=== PATIENT | female | born 1980 | race African-American/Black ===

== ENCOUNTER 2019-09-23 14:03 | Emergency (ER) | payer OTHER ==
[~2019-09-23] VITALS: Ht 162.6 cm; Wt 59.1 kg
[2019-09-23 14:10] VITALS: Ht 162.6 cm; Wt 59.1 kg
[2019-09-23] MEDS ORDERED: NORVASC5 MG PO (14:11)
[2019-09-23 14:49] LABS: BASOPHILS 0.1 % (0-2); EOSINOPHILS 0.1 % (0-7); HEMATOCRIT 33.4 % (36.0-48.0); HEMOGLOBIN 9.7 g/dL (12-16); IMMATURE GRANULOCYTES 0.3 % (0-5); LYMPHOCYTES 11.7 % (15-50); MCH 20.2 pg (26.0-34.0); MCV 69.6 fL (80.0-100.0); MEAN PLATELET VOLUME 9.3 fL (7.4-10.4); MONOCYTES 5.6 % (2-11); NEUTROPHILS 82.2 % (40-80); RDW 24.3 % (11.5-14.5); WBC 15.1 10x3/uL (4.8-10.8)
[2019-09-23 14:57] LABS: PLATELET COUNT 447 10x3/uL (130-400)
[2019-09-23 15:08] LABS: BILIRUBIN NEGATIVE (NEGATIVE); GLUCOSE NEGATIVE (NEGATIVE); KETONE NEGATIVE (NEGATIVE); NITRITE NEGATIVE (NEGATIVE); SPECIFIC GRAVITY 1.015 (1.005-1.020); UROBILINOGEN NORMAL (NORMAL)
[2019-09-23 15:09] LABS: EPITHELIAL CELLS 0-5 /hpf (0-5); WHITE CELLS - URINE 0-5 /hpf (NEGATIVE)
[2019-09-23 15:09] LABS: INR 1.08 (0.85-1.17); PROTIME 13.9 SECONDS (11.6-15.0)
[2019-09-23 15:10] LABS: APTT 35.1 SECONDS (22.8-39.4)
[2019-09-23 15:10] LABS: BACTERIA FEW /hpf (NEGATIVE)
[2019-09-23 15:13] LABS: CALC OSMOLALITY 263 mosm/kg (275-300); CARBON DIOXIDE 22.2 mmol/L (21.0-32.0); CHLORIDE - SERUM 101 mmol/L (98-107); CREATININE - SERUM 0.8 mg/dL (0.6-1.3); GLUCOSE 107 mg/dL (74-106); POTASSIUM - SERUM 3.8 mmol/L (3.5-5.1); SODIUM 133 mmol/L (136-145); UREA NITROGEN 8 mg/dL (7-18); eGFR NON AFRICAN AMERICAN 84 mL/min (90-120)
[2019-09-23 15:28] LABS: ALKALINE PHOSPHATASE 82 U/L (30-120); ALT (SGPT) 16 U/L (10-68); AMYLASE - SERUM 56 U/L (25-115); BILIRUBIN - TOTAL 0.78 mg/dL (0.2-1.3); CKMB 1.2 U/L (0.0-3.6); CREATINE KINASE 138 UL (21-215); MAGNESIUM - SERUM 1.9 mg/dL (1.8-2.4)
[2019-09-23 15:31] LABS: LIPASE 27 U/L (73-393); TROPONIN-I < 0.017 ng/mL (0.000-0.060)
[2019-09-23 18:54] VITALS: BP 173/88
== END 2019-09-23 18:58 | disposition home or self-care (01) ==
LOC: D.ER 14:03
PROVIDERS: Family Medicine
DX: N83.201 Unspecified ovarian cyst, right side (principal); I10 Essential (primary) hypertension; Z72.0 Tobacco use; R10.9 Unspecified abdominal pain; Z91.14 Patient's other noncompliance with medication regimen; D25.9 Leiomyoma of uterus, unspecified

== ENCOUNTER 2019-10-25 05:05 | Day surgery (SDC) | payer OTHER ==
[2019-10-22 12:23] LABS: BASOPHILS 0.2 % (0-2); EOSINOPHILS 2.5 % (0-7); HEMATOCRIT 29.9 % (36.0-48.0); HEMOGLOBIN 8.3 g/dL (12-16); IMMATURE GRANULOCYTES 0.1 % (0-5); LYMPHOCYTES 27.4 % (15-50); MCHC 27.8 g/dL (31.0-37.0); MCV 66.9 fL (80.0-100.0); MEAN PLATELET VOLUME 8.6 fL (7.4-10.4); NEUTROPHILS 62.8 % (40-80); PLATELET COUNT 361 10x3/uL (130-400); RBC 4.47 10x6/uL (4.00-5.40); RDW 23.9 % (11.5-14.5); WBC 8.1 10x3/uL (4.8-10.8)
[2019-10-22 12:27] LABS: UDS - AMPHET NEGATIVE QUAL (NEGATIVE); UDS - BARB NEGATIVE QUAL (NEGATIVE); UDS - BENZO NEGATIVE QUAL (NEGATIVE); UDS - COCAINE NEGATIVE QUAL (NEGATIVE); UDS - OPIATE NEGATIVE QUAL (NEGATIVE); UDS - PCP NEGATIVE QUAL (NEGATIVE); UDS - THC POSITIVE QUAL (NEGATIVE)
[2019-10-22 12:30] LABS: CALC OSMOLALITY 274 mosm/kg (275-300); CALCIUM 9.1 mg/dL (8.5-10.1); CARBON DIOXIDE 25.7 mmol/L (21.0-32.0); CHLORIDE - SERUM 104 mmol/L (98-107); CREATININE - SERUM 0.8 mg/dL (0.6-1.3); GLUCOSE 91 mg/dL (74-106); SODIUM 137 mmol/L (136-145); UREA NITROGEN 14 mg/dL (7-18); eGFR NON AFRICAN AMERICAN 84 mL/min (90-120)
[2019-10-22 12:32] LABS: MCH 18.6 pg (26.0-34.0)
[~2019-10-25] VITALS: Ht 162.6 cm; Wt 66.4 kg
[2019-10-25] VITALS (18 sets, daily range): BP systolic 138–181; BP diastolic 74–95; Ht 162.6 cm; Wt 66.4 kg
[~2019-10-25 05:05] MED LIST: EZFE 200200 MG PO; NORVASC5 MG PO; TORADOL10 MG PO; TYLENOL #4 W/CO1 TAB PO
[2019-10-25] MEDS ORDERED: EZFE 200200 MG PO (05:45)
[2019-10-25 05:56] LABS: HCG URINE NEGATIVE (NEGATIVE)
--- NOTE | 2019-10-25 06:20 | NUR ---
0085-PHONED HEMOGLOBIN AND HEMATOCRIT RESULTS TO DR. REECE-ORDER RECEIVED FOR CROSSMATCH 2 UNTIS OF PRBC'S.
--- NOTE | 2019-10-25 08:18 | NUR ---
0752 LAPROSCOPIC CHANGED TO OPEN PROCEDURE
--- NOTE | 2019-10-25 10:46 | NUR ---
REC'D TO ROOM 1278 FROM PACU ACCOMPANIED BY TRANSPORTER. PT GROGGY BUT AROUSES TO VOICE. ORIENTED X3. B/P ELEVATED AT THIS TIME AT 167/88. PT C/O PAIN 5-6/10 ABD AND INCISIONAL. REPORTS TO RN THAT B/P ELEVATES WITH PAIN TYPICALLY. BREATH SOUNDS CLEAR AND EQUAL BILATERALLY. BOWEL SOUNDS PRESENT AND HYPOACTIVE X4 QUADRANTS. NERI DRAINING FORMULA TINGED URINE, 25 MLS PRESENT IN UROMETER, PER REPORT REC'D FROM CHUTE MAN HE HAD EMPTIED 140 MLS OUT JUST PRIOR TO CALLING REPORT. BULKY DRSG NOTED TO LOWER TRANSVERSE ABD INCISION, CLEAN, DRY AND INTACT, NO DRAINAGE NOTED TO DRSG. SCD'S PLACE DON BLE. INCENTIVE SPIROMETER PROVIDED AND USED BY PT WITH GOOD EFFORT, COUGH AND DEEP BREATHING ALSO DONE WITH GOOD EFFORT. PERICARE DONE, NO VAG BLEEDING NOTED. PERIPAD PLACED. WILL MEDICATE FOR PAIN. POC DISCUSSED WITH PT, VERBALIZES UNDERSTANDING. IV PLACED TO PUMP.
--- NOTE | 2019-10-25 11:04 | NUR ---
PT'S MOTHER TO BEDSIDE.
--- NOTE | 2019-10-25 12:07 | NUR ---
I&O DONE, 150 MLS FORMULA TINGED URINE EMPTIED FROM UROMETER. INCENTIVE SPIROMETER DONE WITH GOOD EFFORT. REPOSITIONED INDEPENDENTLY. DENIES NAUSEA. ICE WATER PROVIDED AND ENCOURAGED TO TAKE SMALL SLOW SIPS, VERBALIZES UNDERSTANDING. PAIN CURRENTLY 3-4/10, DENIES NEED FOR INTERVENTION.
--- NOTE | 2019-10-25 14:03 | NUR ---
VSS. C/O FEELING HOT. NO TEMP AT THIS TIME. ROOM TEMP DECREASED, BLANKETS REMOVED AND SHEET PROVIDED. ICE PACK REPLACED. SCD'S REMAIN ON BLE. INCENTIVE SPIROMETER DONE WITH GOOD EFFORT X10. REPOSITIONED BACK TO BACK FROM L SIDE. PERICARE AND NERI CARE DONE. BED IN LOW POSITION WITH SRUP X2. CALL LIGHT AND PHONE WITHIN REACH. PT'S MOTHER AT BEDSIDE, SUPPORTIVE AND ATTENTIVE TO PT NEEDS. WILL CONTINUE TO MONITOR.
--- NOTE | 2019-10-25 16:02 | NUR ---
PT CALLS OUT BOX LINER LIGHT REQUESTING PAIN MEDICATION AND BLANKET. THIS RN TO ROOM WITH WARM BLANKET. DILAUID 2MG ADMIN IVP FOR PAIN RATED 6/10 AT INCISION, PT REQUESTS 2MG DOSE FOR PAIN WORSENING WITH COUGH AND MOVEMENT. WILL ADMIN SCHEDULED 1600 MEDS WELL.
--- NOTE | 2019-10-25 16:12 | NUR ---
SCHED TORADOL ADMIN, SEE EMAR. PT NAUSEATED. 4MG ZOFRAN ADMIN ORDERED, PRN, SEE EMAR. EMESIS BAG GIVEN. WILL HOLD SCHEDULED PO MEDS UNTIL NAUSEA RESOLVED.
--- NOTE | 2019-10-25 16:40 | NUR ---
PT DENIES NAUSEA, STATES READY FOR PO MEDS. CLONIDINE AND REGLAN ADMIN PO ORDERED, WELL SCHED ZOSYN. SEE EMAR FOR DOC. SURGICAL PILLOW PROVIDED TO PT FOR BRACING ABD FOR COUGH. 130ML CLEAR YELLOW URINE EMPTIED FROM UROMETER. PT DENIES FURTHER NEEDS, RATES PAIN 2/10. PT SITTING UP IN BED WATCHING TV AND TALKING WITH MOTHER, DROWSY WHEN NOT TALKING. SRUx2, CL IN REACH. WILL CONT TO MONITOR.
--- NOTE | 2019-10-25 17:03 | NUR ---
BP DECREASE NOTED AFTER 1635 CLONIDINE PO, BUT STILL ELEVATED AT 164/86. WILL REAVALATE IN 30MIN TO ALLOW FULL EFFECT FROM CLONIDINE.
--- NOTE | 2019-10-25 17:35 | NUR ---
PT CALLS OUT DIRECTOR [employer] LIGHT STATING SHE IS NAUSEATED. THIS RN TO ROOM. PT NOTED TO HAVE VOMITED APPROX 50ML CLEAR LIQUIDS AFTER EATING CLEAR LIQUID DINNER TRAY. PT PROVIDED WITH COOL CLOTH AND NEW EMESIS BAG. PT DENIES WANTING THIS RN TO CALL FOR DIFFERENT NAUSEA MED AT THIS TIME, STATES SHE FEELS BETTER AFTER VOMITING. PT ENCOURAGED TO TAKE IT EASY ON CLEAR LIQUIDS AND ONLY SIP SLOWLY WHEN SHE FEELS UP TO IT. UNDERSTANDING VERBALIZED. SRUx2, CL IN REACH.
--- NOTE | 2019-10-25 18:44 | NUR ---
I&O DONE, 125 MLS CLEAR LIGHT YELLOW EMPTIED FROM NERI. DENIES NAUSEA AT THIS TIME. GABAPENTIN PROVIDED. UP TO SIT ON EDGE OF BED, SCD'S OFF PER PT REQUEST. INCENTIVE SPIROMETER DONE WITH GOOD EFFORT. ASSISTED BACK TO BED. ICE WATER AND ICE PACK APPLIED. BED IN LOW POSITION WITH SRUP X2. CALL LIGHT AND PHONE WITHIN REACH. WILL CONTINUE TO MONITOR.
--- NOTE | 2019-10-25 19:28 | NUR ---
PT REC'D IN BED AT THIS TIME. IV SITE TO THE LEFT HAND CLEAR AND PATENT. DRESSING TO THE ADBOMEN CDI. NERI CATH PATENT WITH SMALL AMOUNT OF YELLOW URINE NOTED. SCDS IN PLACE AND FUNCTIONAL. NO DISTRESS NOTED AT THIS TIME. SIDERAILS UP FOR SAFETY. CALL LIGHT IN PT REACH. Kari JOHNSTON RN
--- NOTE | 2019-10-25 20:23 | NUR ---
DR REECE CALLED AT THIS TIME. INFORMED OF ELEVATED BP. ORDER REC'D TO INCREASE CLONIDINE TO 0.1MG TID IF NEEDED AND AMBIEN 10 MG PO Q HS NEEDED. Kari JOHNSTON RN
--- NOTE | 2019-10-25 21:35 | NUR ---
PT MEDICATED WITH SCHEDULED REGLAN, TORADOL FOR PAIN LEVEL OF 5/10, AND SCHEDULED ZOSYN UP AT THIS TIME. NO DISTRESS NOTED. Kari JOHNSTON RN
--- NOTE | 2019-10-25 22:35 | NUR ---
pt rec'd in bed at this time. intermittently sleeping. states that pain is a 1/10 at this time. will continue to monitor. rashel marcano rn
[2019-10-26 00:27] VITALS: BP 162/82
--- NOTE | 2019-10-26 00:27 | NUR ---
pt rec'd in bed at this time. pt states that pain is a 2/10. pt has not been asleep. pt instructed to attempt to rest. understanding verbalized. pt offered ambien. pt states that if she is not asleep in an hour then she would take ambien. rashel marcano rn
--- NOTE | 2019-10-26 01:30 | NUR ---
PT ASLEEP AT THIS TIME. WILL CONTINUE TO MONITOR. Kari JOHNSTON RN
--- NOTE | 2019-10-26 03:15 | NUR ---
PT GIVEN NEURONTIN AT THIS TIME AND NEW IV BAG UP. NO DISTRESS NOTED. Kari JOHNSTON RN
[2019-10-26 04:20] VITALS: BP 141/78
--- NOTE | 2019-10-26 04:20 | NUR ---
600 ML IN NERI CATH AT THIS TIME. CATHETER DISCONTINUED AT THIS TIME. GIVEN PUDDING AT THIS TIME. PT TOLERATED WELL. Kari JOHNSTON RN
--- NOTE | 2019-10-26 06:15 | NUR ---
PT REC'D IN BED ASLEEP AT THIS TIME. NO DISTRESS NOTED. Kari SYEDRN
[2019-10-26 07:48] VITALS: BP 173/94
--- NOTE | 2019-10-26 07:48 | NUR ---
SHIFT ASSESSMENT COMPLETED PER FLOWSHEET, BP ELEVATED 173/94, 0900 CLONIDINE GIVEN AT THIS TIME. PT RATES PAIN 2-3/10 DENIES NEED FOR INTERVENTION. BOWEL SOUNDS HYPOACTIVE AND PT DENIES PASSING FLATUS. DRESSING TO LOWER ABD. CLEAN DRY INTACT. NO DRAINAGE TO DRESSING. SCD'S ON BLE, POC D/W PT AND FAMILY, PT REPORTS DESIRE TO AMBULATE AFTER AM MEAL. CL IN REACH, BED IN LOW POSITION, SR UP X2
--- NOTE | 2019-10-26 08:04 | NUR ---
DR. REECE ON UNIT. REPORT GIVEN REGARDING ELEVATED B/P AT 0748. ORDERS REC'D. ALSO DISCUSSED WITH DR. REECE PT WISHES TO D/C HOME, STATES HE WILL ROUND THIS AFTERNOON FOLLOWING CLINIC ON PT AND ASSESS AT THAT TIME.
--- NOTE | 2019-10-26 08:29 | NUR ---
PT UP AMBULATING IN HALLWAY WITH MOTHER AT SIDE, STEADY GAIT, DENIES ANY NEEDS AT THIS TIME
[2019-10-26 09:58] VITALS: BP 145/81
--- NOTE | 2019-10-26 10:26 | NUR ---
L HAND PIV SL. PAIN REASSESSMENT COMPLETED 05/14, DENIES NEED FOR INTERVENTION AT THIS TIME. ICE WATER PROVIDE, REPORTS THAT SHE DID VOID AGAIN BUT FORGOT AND THREW TOILET PAPER IN IT SO SHE STATES THAT SHE EMPTIED HAT AND WILL NOTIFY RN OF NEXT VOID. BED IN LOW POSITION WITH SRUP X2. CALL LIGHT AND PHONE WITHIN REACH. SCD'S ON BLE. WILL CONTINUE TO MONITOR.
--- NOTE | 2019-10-26 11:51 | NUR ---
AMBULATORY ON UNIT WITH HER MOTHER. STEADY GAIT NOTED. REPORTS THAT SHE VOIDED 300 MLS IN HAT, RN TO ROOM, EMPTIED AND PT NOTIFIED THAT SHE NO LONGER HAD TO MEASURE VOIDS. DENIES PAIN AT THIS TIME. BED IN LOW POSITION WITH SRUP X2. CALL LIGHT AND PHONE WITHIN REACH. WILL CONTINUE TO MONITOR.
[2019-10-26 12:23] VITALS: BP 157/70
--- NOTE | 2019-10-26 13:13 | NUR ---
PAIN REASSESSMENT COMPLETED, 05/14. ICE WATER PROVIDED PER REQUEST. DENIES NEEDS. BED IN LOW POSITION WITH SRUP X2. CALL LIGHT AND PHONE WITHIN REACH. WILL CONTINUE TO MONITOR .
--- NOTE | 2019-10-26 14:56 | NUR ---
AMBULATORY ON UNIT WITH PT MOTHER. STEADY GAIT NOTED. DENIES NEEDS.
--- NOTE | 2019-10-26 16:35 | NUR ---
MEDS GIVEN PER EMAR. VSS. DENIES ADDITIONAL NEEDS. LOWER TRANSVERSE ABD DRSG REMOVED, INCISION WELL APPROXIMATED, GLUE INTACT, NO DRAINAGE NOTED. DENIES NEEDS.
--- NOTE | 2019-10-26 17:34 | NUR ---
ANTIBIOTICS COMPLETED. L HAND PIV FLUSHED, NO S/S OF INFILTRATION NOTED. PIV D/C'D WITH TIP INTACT. BANDAID PLACED. DR. REECE AT BEDSIDE DISCUSSING POC WITH PT.
--- NOTE | 2019-10-26 18:41 | NUR ---
D/C INSTRUCTIONS PROVIDED TO PT, VERBALIZES UNDERSTANDING AND DENIES QUESTIONS. PT PROVIDED WITH PRESCRIPTIONS AND WILL TAKE TO PHARMACY TO HAVE FILLED, REFUSE GABAPENTIN AT THIS TIME, STATES SHE WILL TAKE WHEN SHE GETS HOME. OFF UNIT IN W/C WITH THIS RN IN STABLE CONDITION TO AWAITING CAR.
--- NOTE | 2019-11-02 10:40 | OP ---
PATIENT NAME: QUEEN Shoaib LAKE MEDICAL RECORD: [id number] :78 LOCATION:[facility], [facility]IN [facility] ADMISSION DATE: SURGEON: SEKOU REECE MD DATE OF OPERATION: 10/25/2019 PREOPERATIVE DIAGNOSES: 1. Anemia. 2. Dysfunctional uterine bleeding. 3. Fibroid uterus. 4. Pelvic mass. POSTOPERATIVE DIAGNOSES: 1. Anemia. 2. Dysfunctional uterine bleeding. 3. Fibroid uterus. 4. Pelvic mass. PROCEDURE: 1. Exam under anesthesia. 2. Exploratory laparotomy. 3. Total abdominal hysterectomy. 4. Left salpingectomy. 5. Right salpingo-oophorectomy. SURGEON: Sekou Reece MD ANESTHESIOLOGIST: Dr. Vargas. ANESTHESIA: General. FINDINGS: Large fibroid uterus greater than 500 grams with multiple fibroids distorting the anatomy. Left ovary and tube is unremarkable. There is a right ovarian and adnexal mass adherent to the bowel and sidewall containing purulent material. SPECIMENS REMOVED: Uterus with cervix, bilateral tubes and right ovary. SPECIMEN DISPOSITION: All specimens to pathology. ESTIMATED BLOOD LOSS: 500 cc. FLUIDS GIVEN: 1. 2600 cc lactated Ringer's. 2. Two units packed red blood cells. URINE OUTPUT: 100 cc of clear urine. COMPLICATIONS: None. DRAIN: Davison to gravity. INDICATIONS: The patient is 39-year-old female with history of anemia and heavy periods. Workup included ultrasound, which shows multiple fibroids and adnexal mass. The patient is noted to be anemic prior to this procedure and will receive 2 units intraoperatively. The risks, benefits as well as limitations of OPERATIVE REPORT [id number] QUEEN Shoaib LAKE this procedure have been described and the patient wishes to proceed. DESCRIPTION OF PROCEDURE: After patient was taken to the room, an anesthesia was achieved. The patient was examined, a large uterus palpated. The decision was made for an abdominal approach. The patient was positioned and prepped. A low transverse incision was made on the abdomen and carried down to the underlying layer of the fascia, which was opened in the midline and extended laterally. Rectus bellies were dissected free superiorly and inferiorly and then in the midline. The peritoneum was entered sharply. The peritoneal opening extended with good visualization of the bladder. Using Bansal and Mami retractors, the round ligament of the right side was identified. This was grasped with a [place] clamp and stick tied. The broad ligament was entered and a window developed posteriorly. Two clamps were placed here and this pedicle developed with Ley scissors. A 4.5 stitch was applied laterally. The dissection continues down the right side with Metzenbaum scissors and Bovie cautery. The vessels of the right side are identified. Bladder flap has developed to the midline. These vessels were doubly clamped and straight clamp was placed above it for backbleeding. A simple stitch and then a Hayley stitch was applied at the uterine vascular pedicle on the right to obtain hemostasis. Attention was directed to the left side where the left round ligament was identified and grasped. Again, this ligament was stick tied and the broad ligament entered. The broad ligament was opened anteriorly and bladder flap now fully developed. Posteriorly, a window was developed and the spaces doubly clamped. Between the 2 clamps, Ley scissors were used to develop the pedicle. The 4.5 stitches applied for hemostasis laterally. The tissue surrounding the vascular bundle of the left side was dissected free. The vessels doubly clamped and the straight clamp placed for backbleeding. A simple and a Hayley stitch was applied to the left vascular bundle to obtain hemostasis. Now to allow better visualization, the uterus was removed with Leonardo scissors. The remaining portion of the cardinal ligaments on both right and left side are serially clamped, cut and tied with straight clamps until the uterosacral ligaments were reached. Any balance" Hayley clamps were now used to crossclamp below the level of the cervix in the uppermost portion of the vagina. The cervix was now removed with Leonardo scissors and an interrupted [id number] stitches applied across the cuff to ensure hemostasis. The pelvis was irrigated and irrigant removed. Adequate hemostasis has been achieved. The attention was now directed to the left adnexa. The left tube was elevated with Elicia clamp and Hayley-Angel Clamp placed under this. This pedicle was developed with Metzenbaum scissors and 4.5 stitch applied for hemostasis. Attention was directed to the right side. Adhesions were encountered and these were taken down sharply as well as bluntly. Once the adnexa has been mobilized, infundibulopelvic ligament had been identified, the ovary and tube elevated. The ureter was identified and noted to be well below the operative site. The pedicle was now clamped and the ovary and mass along with the tube was removed. A 4.5 stitch was applied here for hemostasis. The mass was opened on the back table revealing purulent material without any evidence of tissue consistent with dermoid. Cultures were sent. The pelvis was copiously irrigated and irrigant removed. The patient was now closed with a running stitch of delayed absorbable suture on the fascia. Subcutaneous tissues were irrigated. Bleeding vessels cauterized and the skin now closed. Sterile dressing was applied and the patient went to the recovery area in stable condition. Sponge, lap, needle counts were correct times 2. TRANSINT:[id number] Voice Confirmation ID: [id number] DOCUMENT ID: [id number] OPERATIVE REPORT [id number] QUEEN Shoaib LAKE,SEKOU Duque MD at 1040 CC: [id number] DICTATION DATE: 11/02/19 07 [employer] STORE MANAGER: 11/02/19 0928 [facility] 10/26/19 [id number] [place] [address]
== END 2019-10-26 18:41 | disposition home or self-care (01) ==
LOC: D.OPS 05:05 → D.LD 05:05 → D.PAN 07:00 → D.OPS 07:00 → D.LD 10:10 → D.OPS 10:15
PROVIDERS: ATTEND Obstetrics & Gynecology
DX: D64.9 Anemia, unspecified (principal); N93.8 Other specified abnormal uterine and vaginal bleeding; D25.9 Leiomyoma of uterus, unspecified; R19.00 Intra-abdominal and pelvic swelling, mass and lump, unspecified site